=== PATIENT | female | born 1930 | race Caucasian/White ===

== ENCOUNTER → 2017-08-30 | Outpatient (CLI) | payer OTHER ==
[~2017-08-30] MED LIST: ADULT LOW DOSE81 MG PO; B-COMPLEX-VITA1 EACH PO; COLACE100 MG PO; COZAAR 50 MG TA50 M2 PO; COZAAR100 MG PO; DIABETA 5MG TABL5 MG PO; DIOVAN HCT 3201 EAC1; GLIPIZIDE ER5 MG PO; GLUCOPHAGE1000 MG PO; GLUCOPHAGE500 MG PO; GLUCOTROL5 MG PO; HIBICLENS120 ML TP; HYDREA 500 MG500 M1 PO; HYDREA500 MG PO; LEVOTHYROXIN0.025 MG PO; LIPITOR10 MG PO; LISINOPRIL-HCT1 EACH PO; METOCLOPRAMIDE10 MG PO; MIRALAX17 GM PO; MOBIC7.5 M1 PO; MOBIC7.5 MG PO; MOM; NEURONTIN 300300 M1 PO; PRESERVISION L1 EACH PO; PROTONIX40 M1 PO; PROZAC 20 MG20 MG PO; SENOKOT-S1 TA1 PO; SIMVASTATIN40 MG PO; TRIAMCINOLONE A15 G1 TP; UREA CREAM 40%1 TUBE TP; ZOCOR 10 MG TAB10 MG PO
== END ==
LOC: M.RAD 09:49
DX: Z12.31 Encounter for screening mammogram for malignant neoplasm of breast (principal)

== ENCOUNTER → 2017-10-06 | Outpatient (CLI) | payer OTHER | LOC: M.WC 12:32 | DX: E11.621 Type 2 diabetes mellitus with foot ulcer (principal); L97.421 Non-pressure chronic ulcer of left heel and midfoot limited to breakdown of skin; L97.411 Non-pressure chronic ulcer of right heel and midfoot limited to breakdown of skin; E11.36 Type 2 diabetes mellitus with diabetic cataract; I10 Essential (primary) hypertension; E78.5 Hyperlipidemia, unspecified; I25.10 Atherosclerotic heart disease of native coronary artery without angina pectoris; M19.90 Unspecified osteoarthritis, unspecified site ==

== ENCOUNTER → 2017-10-20 | Outpatient (CLI) | payer OTHER | LOC: M.WC 01:38 | DX: E11.622 Type 2 diabetes mellitus with other skin ulcer (principal); L97.421 Non-pressure chronic ulcer of left heel and midfoot limited to breakdown of skin; L89.893 Pressure ulcer of other site, stage 3; I10 Essential (primary) hypertension; E78.5 Hyperlipidemia, unspecified; I25.10 Atherosclerotic heart disease of native coronary artery without angina pectoris; E11.36 Type 2 diabetes mellitus with diabetic cataract; M19.90 Unspecified osteoarthritis, unspecified site ==

== ENCOUNTER → 2017-10-27 | Outpatient (CLI) | payer OTHER | LOC: M.WC 02:51 | DX: E11.621 Type 2 diabetes mellitus with foot ulcer (principal); L97.421 Non-pressure chronic ulcer of left heel and midfoot limited to breakdown of skin; L89.893 Pressure ulcer of other site, stage 3; E11.51 Type 2 diabetes mellitus with diabetic peripheral angiopathy without gangrene; E78.5 Hyperlipidemia, unspecified; I10 Essential (primary) hypertension; I25.10 Atherosclerotic heart disease of native coronary artery without angina pectoris; E11.36 Type 2 diabetes mellitus with diabetic cataract; M19.90 Unspecified osteoarthritis, unspecified site ==